=== PATIENT | male | born 1955 ===

== ENCOUNTER 2022-12-06 11:42 | Day surgery (SDC) | payer MEDICARE, BC ==
[~2022-12-06] VITALS: Ht 175.3 cm; Wt 101.7 kg
[2022-12-06] MEDS ORDERED: OMEP20ER PO (11:55)
[2022-12-06] MEDS ORDERED: ATOR10 PO (11:55)
[2022-12-06] MEDS ORDERED: TAMSULOSIN HCL0.4 M1 PO (11:55)
[2022-12-06] MEDS ORDERED: AMLODIPINE BESYL5 MG PO (11:55)
--- NOTE | 2022-12-06 12:03 | NUR ---
12/06/22 1203 Maryjane Richter 1 DROP OF TETRACAINE ADMINISTERED TO THE L EYE AT 1159, PLEDGET PLACED IN L EYE AT 1200 BY [facility].WXN, PT JAIME WELL
--- NOTE | 2022-12-06 16:12 | NUR ---
12/06/22 1612 Mary Horner PATIENT STATED HE WAS NAUSEOUS IN STEP DOWN. ONDANSETRON 4MG WAS GIVEN VIA IV PER ORDERS. PATIENT APPEARED TO BE SWEATING BUT DENIED SOB, OR PAIN. AFTER PATIENT WAS SITTING IN THE RECLINER HE PROCEEDED TO VOMIT ONE TIME INTO THE TRASH CAN. PATIENT STATED HE FELT BETTER AFTER EMESIS AND HIS SWEATING RESOLVED. VITAL SIGNS WNL AND PATIENT STATES READINESS TO GO HOME. DISCHARGE INSTRUCTIONS WERE GIVEN, PATIENT AMBULATED ON OWN WITH 1 RN. PATIENT SON WAS WAITING IN THE PATIENT PICK AREA TO TAKE THE PATIENT HOME.
== END 2022-12-06 14:55 | disposition home or self-care (01) ==
LOC: ORSCSDS 11:42
PROVIDERS: Ophthalmology
PROC: 08RK3JZ Replacement of Left Lens with Synthetic Substitute, Percutaneous Approach (ICD-10-PCS; principal; 2022-12-06 13:00)
DX: H25.13 Age-related nuclear cataract, bilateral (principal); H21.81 Floppy iris syndrome; I10 Essential (primary) hypertension; G47.33 Obstructive sleep apnea (adult) (pediatric); K21.9 Gastro-esophageal reflux disease without esophagitis; N40.0 Benign prostatic hyperplasia without lower urinary tract symptoms; Z79.899 Other long term (current) drug therapy; E66.9 Obesity, unspecified; Z68.33 Body mass index [BMI] 33.0-33.9, adult
CPT/HCPCS: A9270; J2001; J2250; J2405; J3010; J3301; J7040; V2632